=== PATIENT | male | born 1955 | race Caucasian/White ===

== ENCOUNTER 2024-03-20 10:22 | Day surgery (SDC) | payer MEDICARE, MEDICAID, SELFPAY ==
--- NOTE | 2024-03-20 11:32 | W.ANESPRE ---
General Info Date of Service Date Performed: 03/20/24 Height: 6 ft 2 in Weight: 181.437 kg Body Mass Index (BMI): 51.3 Surgical Procedure: Operation Date: 03/20/24 14:40 Proposed Procedure Side Surgeon p Cataract Extraction with IOL Implant Left Jesse Medellin MD Meds Allergies and Home Medications Allergies Allergy/AdvReac Type Severity Reaction Status Date / Time No Known Allergies Allergy Verified 03/20/24 11:49 Home Medication Medication Instructions Recorded allopurinol 100 mg tablet 500 mg PO DAILY 02/10/24 apixaban 5 mg tablet 5 mg PO DAILY 02/10/24 aspirin 81 mg tablet,delayed 81 mg PO DAILY 02/10/24 release (Adult Low Dose Aspirin) budesonide-formoterol HFA 160 2 puff inhalation BID 02/10/24 mcg-4.5 mcg/actuation aerosol inhaler celecoxib 200 mg capsule 200 mg PO BID 02/10/24 chlorthalidone 25 mg tablet 25 mg PO DAILY 02/10/24 clotrimazole 1 % topical cream 1 applic topical BID 02/10/24 diclofenac sodium 1 % topical gel 2 g topical BID 02/10/24 (Arthritis Pain (diclofenac)) duloxetine 40 mg capsule,delayed 40 mg PO DAILY 02/10/24 release loteprednol etabonate 0.5 % eye 1 drp ophthalmic (eye) DAILY 02/10/24 drops,suspension (Lotemax) magnesium gluconate 500 mg tablet 500 mg PO DAILY 02/10/24 metoprolol succinate 50 mg 50 mg PO DAILY 02/10/24 tablet,extended release 24 hr nystatin 100,000 unit/gram topical 1 applic topical DAILY 02/10/24 powder omega 6-cbx-ggn-fish oil 1,000 mg 1 cap PO DAILY 02/10/24 (120 mg-180 mg) capsule (Fish Oil) polyethylene glycol 400 1 % eye 2 drp ophthalmic (eye) QID PRN 02/10/24 drops (Dry Eye Relief (PEG 400)) sildenafil (pulm.hypertension) 20 20 mg PO DAILY 02/10/24 mg tablet tamsulosin 0.4 mg capsule 0.8 mg PO DAILY 02/10/24 torsemide 20 mg tablet 120 mg PO DAILY 02/10/24 umeclidinium 62.5 mcg/actuation 1 inh inhalation DAILY 02/10/24 blister powder for inhalation (Incruse Ellipta) Current Visit Medications: Current Medications Generic Name Dose Route Start Last Admin Trade Name Freq PRN Reason Stop Dose Admin Acetaminophen 1,000 mg 03/20/24 06:00 Acetaminophen 500 Mg Tab PO 04/19/24 05:59 Q4H PRN PRN Balanced Salt Solution 500 ml 03/20/24 06:00 Balanced Salt Soln.-Plus 500 Ml Bag OP 04/19/24 05:59 DIRECTED BETH Miscellaneous Medication 0 ml 03/20/24 06:00 Prednisolone 1%, Moxifloxacin 0.5%, Bromfenac 0.09% 5ml Btl OS 04/19/24 05:59 DIRECTED BETH Miscellaneous Medication 0 ml 03/20/24 06:00 Tropicam./Phenyleph. 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 Localized edema R60.0 Knee pain M25.569 Joint pain M25.50 Hypoxemia R09.02 Hypertensive disorder I10 Hyperlipidemia E78.5 Gout M10.9 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 Essential tremor G25.0 Dyspepsia R10.13 Corneal abrasion, left S05.02XA Contracture of joint of hand M24.549 Severe obesity E66.01 Bilateral knee pain M25.561, M25.562 A-fib I48.91 Alcohol abuse with alcohol-induced disorder F10.19 Surgical History Surgical History H/O left wrist surgery Tobacco Smoking/Tobacco Use Status: Former Tobacco Use Alcohol Alcohol Intake: former Substance Use Substance use: Never Substance use type: does not use Vital Signs and Lab Results Vital Signs Comment Vital Signs Comment:: Temp Pulse Resp BP Pulse Ox 36.6 C 82 18 120/81 92 03/20/24 11:37 03/20/24 11:37 03/20/24 11:37 03/20/24 11:37 03/20/24 11:37 Lab Results Blood Type / Crossmatch: No Data to Display Complete Blood Count: No Data to Display Complete Metabolic Panel: No Data to Display Liver Function Panel: No Data to Display Coagulation Panel: No Data to Display Cardiac Panel: No Data to Display Arterial Blood Gas: No Data to Display Venous Blood Gas: No Data to Display Pancreas Panel: No Data to Display Thyroid Panel: No Data to Display Infectious Disease: No Data to Display Blood Cultures: No Data to Display Toxicology Panel: No Data to Display Imaging and Studies Imaging and Studies Study information below may be from another EMR and interpreted by another provider. Please see original notes in EMR for more complete details. EKG Summary: 12/10/23: Bell: A-Fib rate of 82. Stress Test Summary: 11/15/2023: No Ischemia Echocardiogram Summary: 10/29/2023: EF 65%, The heart looks healthy -- we do not see any unusual structures Anesthesia Assessment and Plan Anesthesia History Personal History: No History of Anesthesia Complications Family History: No Family History of Anesthesia Complications Exercise Tolerance Exercise Tolerance: Metabolic Equivalents>4 Pertinent Negatives Pertinent Negatives: No Symptoms of GERD Cardiac & Pulmonary Exam Cardiac Exam: Normal S1/S2 Heart Sounds Pulmonary Exam: Clear Bilateral Breath Sounds Implantable Cardiac Device Does patient have a Pacemaker or an ICD?: No Airway Exam Known Difficult Airway: No Mallampati Class: 1 Mouth Opening: Normal (> 3cm) Thyromental Distance: Greater than 3 cm Neck Range of Motion: Full ROM Neck Circumference: Normal Teeth Condition: Normal Dentition ASA Classification ASA Score: ASA 3 Emergency Case?: No NPO Status NPO Status: NPO Clears >2 hours, Solids >8 hours Anesthesia Plan Resuscitation Status: Full Code Anesthesia Technique: MAC Anesthesia Airway Planned: Natural Airway Monitors Used: Standard Monitors
[2024-03-20 11:37] VITALS: BP 120/81; PULSE 82; RESP 18; TEMP 36.6; O2SAT 92
[2024-03-20 12:15] VITALS: BMI 51.3
[2024-03-20] MEDS: Tetracaine 0.5% 4 ML BTL OS (12:55)
[2024-03-20] MEDS: Povidone-Iodine Ophth 30 ML BTL (12:55)
[2024-03-20] MEDS: Lidocaine 1% Pres-Free 5 ML VIAL (13:03)
[2024-03-20] MEDS: Duovisc Viscoelastic System EACH 1 EACH (13:03)
[2024-03-20] MEDS: Balanced Salt Soln.-PLUS 500 ML BAG OP (13:03)
[2024-03-20] MEDS: Trypan Blue 0.06% 0.5 ML SYR (13:07)
[2024-03-20 13:36] VITALS: BP 113/69; PULSE 92; RESP 18; TEMP 36.5; O2SAT 95
--- NOTE | 2024-03-20 13:37 | W.PM.DSUDISC ---
Date of service: 03/20/24 Time of Service: 13:38 Discharge Plan Disposition Patient Disposition: Home Discharge Details Attending Provider: Jesse Medellin Primary Care Provider: Gualberto Llanes Home Meds and New Rx's Prescriptions: No Action allopurinol 100 mg tablet 500 mg PO DAILY apixaban 5 mg tablet 5 mg PO DAILY aspirin [Adult Low Dose Aspirin] 81 mg tablet,delayed release (DR/EC) 81 mg PO DAILY budesonide-formoterol 160-4.5 mcg/actuation HFA aerosol inhaler 2 puff inhalation BID celecoxib 200 mg capsule 200 mg PO BID chlorthalidone 25 mg tablet 25 mg PO DAILY clotrimazole 1 % cream 1 applic topical BID diclofenac sodium [Arthritis Pain (diclofenac)] 1 % gel 2 g topical BID Rx Instructions: apply to single elbow, wrist or hand; for hand includes palm/fingers/back of hand Dry Eye Relief (PEG 400) 1 % drops 2 drp ophthalmic (eye) QID PRN duloxetine 40 mg capsule,delayed release(DR/EC) 40 mg PO DAILY omega 9-byx-wbf-fish oil [Fish Oil] 1,000 mg (120 mg-180 mg) capsule 1 cap PO DAILY Incruse Ellipta 62.5 mcg/actuation blister with device 1 inh inhalation DAILY loteprednol etabonate [Lotemax] 0.5 % drops,suspension 1 drp ophthalmic (eye) DAILY magnesium gluconate 500 mg tablet 500 mg PO DAILY metoprolol succinate 50 mg tablet extended release 24 hr 50 mg PO DAILY nystatin 100,000 unit/gram powder 1 applic topical DAILY sildenafil (pulm.hypertension) 20 mg tablet 20 mg PO DAILY Rx Instructions: administer doses at least 4-6 hours apart tamsulosin 0.4 mg capsule 0.8 mg PO DAILY torsemide 20 mg tablet 120 mg PO DAILY Discharge Instructions Stand Alone Forms: DSU Post-Op CataractJudi (DSU) Discharge Orders Discharge Orders: Discharge Order (Routine); Ordered 03/20/24 Ordered By: Jesse Medellin DS: Diagnosis Discharge Diagnosis (1) Cortical age-related cataract, left eye: Status: Resolved (2) Nuclear age-related cataract, left eye: Status: Resolved
--- NOTE | 2024-03-20 13:38 | W.PM.OP ---
Date of service: 03/20/24 Time of Service: 13:38 Operative Note Operative Note DATE OF PROCEDURE: 03/20/24 PRE-OP DIAGNOSIS: Dense nuclear/cortical cataract, left eye history of corneal ulcer with corneal scarring, left eye POST-OP DIAGNOSIS: same PROCEDURE: Cataract extraction using phacoemulsification with intraocular lens implant, left eye SURGEON: Jesse Medellin ANESTHESIA TYPE: Local By Surgeon and MAC Refer to Anesthesia Record PATHOLOGY: none sent COMPLICATIONS: None Patient was transported to: same day Patient's condition: stable Implants: Samuel Clareon [id number] Indications: Progressive decreased vision due to cataract, left eye Procedure Description: CATARACT SURGERY OPERATIVE REPORT PREOPERATIVE DIAGNOSIS: Nuclear/cortical cataract, left eye, dense History of corneal ulcer, left eye with corneal scarring POSTOPERATIVE DIAGNOSIS: Same OPERATION: Cataract extraction using phacoemulsification with posterior chamber intraocular lens implant, left eye. IOL: IOL Synthetic Soil Blocks Pulper/Model: Samuel Clareon [id number] IOL Power: + 22.0 diopters IOL Serial Number: [id number] Optic Diameter: 6.0mm Haptic/Overall Diameter: 13.0mm PHACO INFO: Samuel [employer]ur[employer] Vision System with OZil and Active Fluidics Cumulative Dispersed Energy (CDE): 14.35 seconds SURGEON: Jesse Medellin MD, RICHIE ANESTHESIA: Monitored Anesthesia Care (MAC), with local sub-tenon's anesthetic infiltration COMPLICATIONS: None SPECIMENS: None INDICATIONS FOR PROCEDURE: The patient is a 68-year-old male with history of proptotic globes and floppy eyelids. 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 He has developed a dense almost complete white cataract of the left eye. The option of cataract surgery was offered to the patient and he wished to proceed. See office notes for detailed information. PROCEDURE: The correct surgical eye was identified and marked as the left eye and the pupil was dilated in the preoperative area using mydriatics and cycloplegics. The dilated pupil size was 5.0 mm. Oral sedation was administered in the form of an Imprimis MKO Melt (midazolam 3mg/ketamine 25mg/ondansetron 2mg). The patient elected to proceed without oral sedation. The patient was brought to the operating room where cardiopulmonary monitoring was instituted and surgical time-out was performed, confirming the correct operative eye and IOL power. Topical anesthesia was administered and ophthalmic povidone-iodine 5% was instilled into the conjunctival fornices. The cheikh-ocular area was prepped with Betadine 10% solution and draped in the usual sterile fashion for intraocular surgery, including an aperture drape. A Tegaderm transparent film dressing was cut in half and used to cover the lashes and lid margins. Care was taken to sequester the lashes and lid margins under the Tegaderm dressing. A lid speculum was placed between the lids of the operative eye and the Samuel Lux[employer] Revalia operating microscope was maneuvered into position. April scissors were then used to make a conjunctival buttonhole approximately 6mm posterior to the limbus in the inferonasal quadrant. Blunt dissection was carried out to expose bare sclera, and a blunt-tipped sub-tenon?s anesthesia cannula was introduced and passed posteriorly along the globe where non-preserved plain lidocaine was injected into posterior sub-Tenon?s space. A sideport knife was used to make a paracentesis port. VisionBlue was injected into the anterior chamber and allowed to sit for 30 seconds. Intraocular phenylephrine/lidocaine was injected into the anterior chamber. The anterior chamber was then filled with viscoelastic. A keratome knife was used construct a two-plane clear corneal tunnel extending 2.0mm into clear cornea. Corneal tissue was noted to be quite rubbery. A flap was raised on the anterior capsule and capsulorhexis forceps were used to complete a continuous curvilinear capsulorhexis of 5.0 mm. The capsule was noted to be quite thin yet very rubbery. Visualization in the nasal quadrant was severely impacted by the corneal scar. Balanced salt solution was then used to perform cortical cleaving hydrodissection and nuclear hydrodelineation until the lens could be freely rotated within the capsular bag. The lens nucleus was then disassembled and removed within the capsular bag and iris plane using phacoemulsification. The lens iris diaphragm was noted to be quite unstable. Residual cortical material was removed using the irrigation/aspiration handpiece. The posterior capsule was carefully polished to remove as much residual lens epithelial cells as safely possible. The capsular bag was then inflated and the anterior chamber deepened with viscoelastic. The lens implant described above was inserted into the capsular bag using the Samuel Autonome Injector. A Kuglen hook was used to dial the IOL into position. Residual viscoelastic was then removed first from posterior to the IOL, then from the anterior chamber using the I/A handpiece. The lens implant was noted to center nicely within the capsular bag. The incisions were stromally hydrated, and the anterior chamber was reformed using BSS. Then 0.5cc of moxifloxacin 1.0mg/ml were injected into the capsular bag and anterior chamber. The incisions were checked with a Weck spear and found to be secure. Several drops of ophthalmic povidone-iodine 5% were then applied to the eye followed by two drops of combination steroid/NSAID/antibiotic solution. The drapes were removed and a clear plastic protective eye shield was placed over the eye. The patient was then returned to Same Day Surgery in stable condition.
[2024-03-20 13:58] VITALS: BP 89/62; PULSE 78; RESP 18; TEMP 36.5; O2SAT 93
--- NOTE | 2024-03-20 13:59 | W.ANESPOSTOP ---
Postoperative Evaluation Date, Time and Location Date Performed: 03/20/24 Time Performed: 13:50 Patient Location: Day Surgery Unit Vital Signs Most Recent Imported Vital Signs: Most Recent Vital Signs Temp Pulse Resp BP Pulse Ox 36.5 C 92 H 18 113/69 95 03/20/24 13:36 03/20/24 13:36 03/20/24 13:36 03/20/24 13:36 03/20/24 13:36 Pain Score Most Recent Pain Score: Most Recent Pain Score Pain Level 0 03/20/24 13:36 Assessment Mental Status: Awake (Alert & Oriented to Patient Baseline) Airway and Respiratory Function: Patent airway with normal (patient baseline) respiratory exam Cardiovascular Function: Hemodynamically Stable Hydration Status: Adequately Hydrated Nausea & Vomiting: No Nausea or Vomiting Pain: Pt. Denies Any Pain Peripheral Nerve Block: Patient did not receive a nerve block
[2024-03-20 14:21] VITALS: BP 115/80; PULSE 60; RESP 18; TEMP 36.7; O2SAT 92
== END 2024-03-20 10:23 | disposition home or self-care (01) ==
PROVIDERS: PCP Family Medicine; Visit Provider Ophthalmology
PROC: (CPT 66984; principal; 2024-03-20 14:30)
DX: H25.012 Cortical age-related cataract, left eye (principal); H25.12 Age-related nuclear cataract, left eye; I10 Essential (primary) hypertension
CPT/HCPCS: 66984; 00123; V2632; J2003